=== PATIENT | female | born 1975 | race African-American/Black ===

== ENCOUNTER 2021-04-16 03:07 | Emergency (ER) | payer MEDICARE, OTHER ==
[~2021-04-16] VITALS: Ht 162.6 cm; Wt 86.2 kg
[2021-04-16] MEDS ORDERED: HYDROCODONE/APAP 5MG-325MG TAB ONE (04:56)
[2021-04-16] MEDS ORDERED: HYDROCODONE/APAP 5MG-325MG TAB PO ONE (06:00)
[2021-04-16] MEDS ORDERED: HYDROCODON-ACE1 EA11 PO (06:24)
[2021-04-16 06:35] VITALS: BP 146/85
== END 2021-04-16 06:35 | disposition home or self-care (01) ==
LOC: FSED 04:15
DX: S83.92XA Sprain of unspecified site of left knee, initial encounter (principal); W01.0XXA Fall on same level from slipping, tripping and stumbling without subsequent striking against object, initial encounter; Y93.01 Activity, walking, marching and hiking; Y92.008 Other place in unspecified non-institutional (private) residence as the place of occurrence of the external cause; G40.909 Epilepsy, unspecified, not intractable, without status epilepticus; I10 Essential (primary) hypertension; G81.94 Hemiplegia, unspecified affecting left nondominant side; J45.909 Unspecified asthma, uncomplicated; Z85.41 Personal history of malignant neoplasm of cervix uteri
CPT/HCPCS: 99283